=== PATIENT | female | born 1950 | race Caucasian/White ===

== ENCOUNTER 2018-04-16 18:52 | Inpatient (IN) | payer MEDICARE ==
[~2018-04-16] VITALS: Ht 162.6 cm; Wt 87.8 kg
[2018-04-16 19:22] LABS: BASOPHILS # (AUTO) 0.06 x10^3/uL (0-0.1); BASOPHILS % (AUTO) 1 % (0-1); EOSINOPHILS # (AUTO) 0.15 x10^3/uL (0-0.4); EOSINOPHILS % (AUTO) 1 % (1-7); LYMPHOCYTES # (AUTO) 0.71 x10^3/uL (1-3.4); LYMPHOCYTES % (AUTO) 7 % (22-44); MD NO; MEAN CORPUSCULAR HEMOGLOBIN 34.8 pg (27.0-34.8); MEAN CORPUSCULAR HGB CONC 32.9 g/dL (32.4-35.8); MEAN CORPUSCULAR VOLUME 105.7 fL (80-100); MEAN PLATELET VOLUME 6.1 fL (7.4-10.4); MONOCYTES # (AUTO) 0.68 x10^3/uL (0.2-0.8); MONOCYTES % (AUTO) 7 % (2-9); NEUTROPHILS # (AUTO) 8.59 x10^3/uL (1.8-6.8); NEUTROPHILS % (AUTO) 84 % (42-75); PLATELET COUNT 466 x10^3/uL (130-400); RED BLOOD COUNT 3.63 x10^6/uL (3.82-5.3); RED CELL DISTRIBUTION WIDTH 18.5 % (9.6-15.2)
[2018-04-16 19:33] LABS: ALANINE AMINOTRANSFERASE 14 U/L (12-78); ALBUMIN 2.9 g/dL (3.4-5.0); ANION GAP 8 mmol/L (5-15); CHLORIDE 96 mmol/L (98-107); CREATININE 0.79 mg/dL (0.55-1.02)
[2018-04-16 19:38] LABS: ALKALINE PHOSPHATASE 62 U/L (45-117); BILIRUBIN,TOTAL 0.7 mg/dL (0.2-1.0); TOTAL PROTEIN 6.3 g/dL (6.4-8.2); TROPONIN I < 0.015 ng/mL (0.000-0.045)
[2018-04-16] MEDS ORDERED: OMNIPAQUE 350 MG/ML, 100ML BOTTLE ONE (20:21)
[2018-04-16] MEDS ORDERED: FUROSEMIDE 40 MG/4 ML ONE (21:21)
[2018-04-16] MEDS ORDERED: FUROSEMIDE 40 MG/4 ML IV ONE (21:30)
[2018-04-16] MEDS ORDERED: ENOXAPARIN 100 MG/ML SQ ONE (21:30)
[2018-04-16] MEDS ORDERED: ONDANSETRON 2MG/ML, 2ML IVPush PRN ×2 (21:30→22:30)
[2018-04-16] MEDS ORDERED: ENOXAPARIN 80 MG/0.8 ML SQ ONE (21:30)
[2018-04-16] MEDS ORDERED: ZOLPIDEM 5MG TABLET PO PRN (22:30)
[2018-04-16] MEDS ORDERED: ACETAMINOPHEN 325 MG TABLET PO PRN (22:30)
[2018-04-16] MEDS ORDERED: ONDANSETRON ODT 4 MG PO PRN (22:30)
[2018-04-16] MEDS ORDERED: AMLODIPINE 5 MG TABLET ONE (22:50)
[2018-04-16] MEDS: AMLODIPINE 5 MG TABLET PO SCH (22:52)
[2018-04-16] MEDS ORDERED: HEPARIN 5,000 UNITS/ML, 1ML IV PRN (23:00)
[2018-04-16] MEDS ORDERED: NICOTINE 21 MG/24 HR PATCH.TD24 TD ONE (23:00)
[2018-04-16] MEDS ORDERED: HEPARIN 5,000 UNITS/ML, 1ML IV ONE (23:00)
[2018-04-16] MEDS ORDERED: HEPARIN 25,000 UNITS/500ML PMX 500 ML IV PRN (23:00)
[2018-04-17] MEDS ORDERED: AMLODIPINE 5 MG TABLET PO ONE (00:30)
[2018-04-17] MEDS ORDERED: HEPARIN 5,000 UNITS/ML, 1ML IV ONE ×2 (01:30→22:30)
[2018-04-17] MEDS ORDERED: HEPARIN 5,000 UNITS/ML, 1ML IV PRN (01:30)
[2018-04-17] MEDS ORDERED: HEPARIN 25,000 UNITS/500ML PMX 500 ML IV PRN (01:30)
[2018-04-17 03:25] VITALS: BP 170/90
[2018-04-17 07:12] LABS: BASOPHILS # (AUTO) 0.14 x10^3/uL (0-0.1); BASOPHILS % (AUTO) 1 % (0-1); EOSINOPHILS # (AUTO) 0.44 x10^3/uL (0-0.4); EOSINOPHILS % (AUTO) 3 % (1-7); LYMPHOCYTES # (AUTO) 0.74 x10^3/uL (1-3.4); LYMPHOCYTES % (AUTO) 6 % (22-44); MD NO; MEAN CORPUSCULAR HEMOGLOBIN 34.4 pg (27.0-34.8); MEAN CORPUSCULAR HGB CONC 32.5 g/dL (32.4-35.8); MEAN CORPUSCULAR VOLUME 105.7 fL (80-100); MEAN PLATELET VOLUME 6.6 fL (7.4-10.4); MONOCYTES # (AUTO) 0.82 x10^3/uL (0.2-0.8); MONOCYTES % (AUTO) 6 % (2-9); NEUTROPHILS # (AUTO) 11.06 x10^3/uL (1.8-6.8); NEUTROPHILS % (AUTO) 84 % (42-75); PLATELET COUNT 438 x10^3/uL (130-400); RED BLOOD COUNT 3.72 x10^6/uL (3.82-5.3)
[2018-04-17 07:18] LABS: ANION GAP 4 mmol/L (5-15); CALCIUM 8.4 mg/dL (8.5-10.1); CHLORIDE 98 mmol/L (98-107)
[2018-04-17 07:56] VITALS: BP 128/69
[2018-04-17] MEDS: POTASSIUM CHLORIDE 20 MEQ TAB.ER.PRT PO SCH ×2 (08:00→16:49)
[2018-04-17] MEDS: FUROSEMIDE 40 MG/4 ML IV SCH ×2 (09:29→17:52)
[2018-04-17 12:21] VITALS: BP 129/74
[2018-04-17] MEDS ORDERED: LIDOCAINE-MPF 2%, 2ML ONE (13:07)
[2018-04-17] MEDS ORDERED: NALOXONE 1 MG/ML, 2ML ONE (14:21)
[2018-04-17] MEDS ORDERED: FENTANYL PF 100 MCG/2ML ONE (14:21)
[2018-04-17] MEDS ORDERED: FLUMAZENIL 0.1 MG/1 ML, 5ML ONE (14:21)
[2018-04-17] MEDS ORDERED: MIDAZOLAM 1 MG/ML, 5ML ONE ×2 (14:21)
[2018-04-17 18:42] VITALS: BP 132/71
[2018-04-17] MEDS: AMLODIPINE 5 MG TABLET PO SCH (22:19)
[2018-04-17 22:22] LABS: PLATELET COUNT 403 x10^3/uL (130-400)
[2018-04-17] MEDS: HEPARIN 25,000 UNITS/500ML PMX 500 ML IV PRN (23:23)
[2018-04-18 01:01] VITALS: BP 128/71
[2018-04-18 05:51] LABS: BASOPHILS # (AUTO) 0.04 x10^3/uL (0-0.1); BASOPHILS % (AUTO) 0 % (0-1); EOSINOPHILS # (AUTO) 0.43 x10^3/uL (0-0.4); EOSINOPHILS % (AUTO) 4 % (1-7); LYMPHOCYTES # (AUTO) 0.79 x10^3/uL (1-3.4); LYMPHOCYTES % (AUTO) 7 % (22-44); MD NO; MEAN CORPUSCULAR HEMOGLOBIN 34.8 pg (27.0-34.8); MEAN CORPUSCULAR HGB CONC 32.2 g/dL (32.4-35.8); MEAN PLATELET VOLUME 6.4 fL (7.4-10.4); MONOCYTES # (AUTO) 0.65 x10^3/uL (0.2-0.8); MONOCYTES % (AUTO) 6 % (2-9); NEUTROPHILS # (AUTO) 9.12 x10^3/uL (1.8-6.8); NEUTROPHILS % (AUTO) 83 % (42-75); PLATELET COUNT 400 x10^3/uL (130-400); RED BLOOD COUNT 3.34 x10^6/uL (3.82-5.3); RED CELL DISTRIBUTION WIDTH 18.3 % (9.6-15.2)
[2018-04-18 05:59] LABS: CALCIUM 7.8 mg/dL (8.5-10.1); CREATININE 1.07 mg/dL (0.55-1.02)
[2018-04-18] MEDS: HEPARIN 5,000 UNITS/ML, 1ML IV PRN ×2 (06:05→19:29)
[2018-04-18 06:15] LABS: CHLORIDE 95 mmol/L (98-107)
[2018-04-18 06:16] LABS: ANION GAP 3 mmol/L (5-15)
[2018-04-18 06:26] LABS: FOLATE LEVEL > 20.0 ng/mL (3.1-17.5)
[2018-04-18 07:28] VITALS: BP 116/65
[2018-04-18] MEDS: AMLODIPINE 5 MG TABLET PO SCH (08:29)
[2018-04-18] MEDS: FUROSEMIDE 40 MG/4 ML IV SCH (08:29)
[2018-04-18] MEDS: POTASSIUM CHLORIDE 20 MEQ TAB.ER.PRT PO SCH (08:29)
[2018-04-18 13:44] VITALS: BP 120/68
[2018-04-18] MEDS ORDERED: FUROSEMIDE 40 MG/4 ML IV SCH (17:00)
[2018-04-18 20:12] VITALS: BP 139/72
[2018-04-19] MEDS: HEPARIN 25,000 UNITS/500ML PMX 500 ML IV PRN (00:18)
[2018-04-19 01:52] VITALS: BP 158/82
[2018-04-19 02:17] LABS: BASOPHILS # (AUTO) 0.07 x10^3/uL (0-0.1); BASOPHILS % (AUTO) 1 % (0-1); EOSINOPHILS % (AUTO) 4 % (1-7); LYMPHOCYTES # (AUTO) 0.92 x10^3/uL (1-3.4); LYMPHOCYTES % (AUTO) 8 % (22-44); MD NO; MEAN CORPUSCULAR HEMOGLOBIN 35.3 pg (27.0-34.8); MEAN CORPUSCULAR HGB CONC 32.6 g/dL (32.4-35.8); MEAN PLATELET VOLUME 6.4 fL (7.4-10.4); MONOCYTES # (AUTO) 0.73 x10^3/uL (0.2-0.8); MONOCYTES % (AUTO) 7 % (2-9); NEUTROPHILS # (AUTO) 8.86 x10^3/uL (1.8-6.8); NEUTROPHILS % (AUTO) 81 % (42-75); PLATELET COUNT 352 x10^3/uL (130-400); RED BLOOD COUNT 3.07 x10^6/uL (3.82-5.3); RED CELL DISTRIBUTION WIDTH 18.7 % (9.6-15.2)
[2018-04-19 02:27] LABS: ANION GAP 1 mmol/L (5-15); CALCIUM 8.1 mg/dL (8.5-10.1); CHLORIDE 95 mmol/L (98-107); CREATININE 0.74 mg/dL (0.55-1.02)
[2018-04-19 02:55] LABS: OCCULT BLOOD POSITIVE (NEGATIVE)
[2018-04-19] MEDS: LEVOTHYROXINE 50 MCG TABLET PO SCH (05:35)
[2018-04-19 07:45] VITALS: BP 136/72
[2018-04-19] MEDS: PANTOPRAZOLE 40 MG IV IVPush SCH ×2 (09:37→21:57)
[2018-04-19] MEDS: NICOTINE 21 MG/24 HR PATCH.TD24 TD SCH (09:37)
[2018-04-19] MEDS: FUROSEMIDE 20 MG TABLET PO SCH ×2 (09:38→17:39)
[2018-04-19] MEDS: AMLODIPINE 5 MG TABLET PO SCH (09:38)
[2018-04-19] MEDS: POTASSIUM CHLORIDE 20 MEQ TAB.ER.PRT PO SCH (09:38)
[2018-04-19 13:38] LABS: OCCULT BLOOD POSITIVE (NEGATIVE)
[2018-04-19 14:08] VITALS: BP 133/70
[2018-04-19 15:17] LABS: OCCULT BLOOD POSITIVE (NEGATIVE)
[2018-04-19 18:38] VITALS: BP 116/71
[2018-04-20 00:05] VITALS: BP 156/81
[2018-04-20] MEDS: LEVOTHYROXINE 50 MCG TABLET PO SCH (05:49)
[2018-04-20 06:51] VITALS: BP 136/70
[2018-04-20] MEDS: FUROSEMIDE 20 MG TABLET PO SCH (08:13)
[2018-04-20] MEDS: POTASSIUM CHLORIDE 20 MEQ TAB.ER.PRT PO SCH (08:13)
[2018-04-20] MEDS: AMLODIPINE 5 MG TABLET PO SCH (08:13)
[2018-04-20] MEDS: NICOTINE 21 MG/24 HR PATCH.TD24 TD SCH (08:14)
[2018-04-20] MEDS: PANTOPRAZOLE 40 MG IV IVPush SCH (11:05)
[2018-04-20 13:00] VITALS: BP 131/75
== END 2018-04-20 13:45 | disposition hospice, home (50) | DRG 291 ==
LOC: ED 20:22 → EDIP 21:12 → 4NOR 23:31 → 3NW 04-17 10:48
PROVIDERS: ADMIT Hospitalist; ATTEND Hospitalist
PROC: 0BBG3ZX Excision of Left Upper Lung Lobe, Percutaneous Approach, Diagnostic (ICD-10-PCS; principal; 2018-04-17)
DX: I11.0 Hypertensive heart disease with heart failure (principal); I26.99 Other pulmonary embolism without acute cor pulmonale; J96.01 Acute respiratory failure with hypoxia; E43 Unspecified severe protein-calorie malnutrition; K57.31 Diverticulosis of large intestine without perforation or abscess with bleeding; D68.59 Other primary thrombophilia; E87.1 Hypo-osmolality and hyponatremia; E87.3 Alkalosis; J98.11 Atelectasis; I50.43 Acute on chronic combined systolic (congestive) and diastolic (congestive) heart failure; D53.9 Nutritional anemia, unspecified; D72.829 Elevated white blood cell count, unspecified; E03.9 Hypothyroidism, unspecified; E66.9 Obesity, unspecified; E83.51 Hypocalcemia; J44.9 Chronic obstructive pulmonary disease, unspecified; S30.1XXA Contusion of abdominal wall, initial encounter; Z66 Do not resuscitate; M19.90 Unspecified osteoarthritis, unspecified site; R79.89 Other specified abnormal findings of blood chemistry; R91.1 Solitary pulmonary nodule; T45.515A Adverse effect of anticoagulants, initial encounter; F17.210 Nicotine dependence, cigarettes, uncomplicated; Z68.33 Body mass index [BMI] 33.0-33.9, adult; Y92.89 Other specified places as the place of occurrence of the external cause; Z80.0 Family history of malignant neoplasm of digestive organs; Z80.42 Family history of malignant neoplasm of prostate; Z82.49 Family history of ischemic heart disease and other diseases of the circulatory system; Z90.710 Acquired absence of both cervix and uterus; Z90.49 Acquired absence of other specified parts of digestive tract; Z81.1 Family history of alcohol abuse and dependence; Z88.5 Allergy status to narcotic agent
CPT/HCPCS: 32405; 36415; 71045; 71275; 74176; 77012; 80048; 80053; 82272; 82607; 82746; 83735; 83880; 84100; 84439; 84443; 84484; 85014; 85018; 85025; 85049; 85520; 88305; 93005; 93306; 93970; 96372; 96374; 99156; 99157; 99291; C2613; J1644; J1650; J1940; J2250; J3010; J3490; Q9967; C9113; J2310